=== PATIENT | female | born 1975 | race Caucasian/White ===

== ENCOUNTER 2016-09-26 09:22 | Emergency (ER) | payer BC ==
--- NOTE | 2016-09-26 10:04 | UC ---
Throat Pain/[place] HPI - HPI Summary HPI Summary: few days of left ear popping and pressure behind eye - History of Current Complaint Chief Complaint: UCEar Stated Complaint: EAR COMPLAINT Time Seen by Provider: 09/26/16 09:52 Hx Obtained From: Patient Hx Last Menstrual Period: few weeks ago ?: No Onset/Duration: Sudden Onset, Lasting Days - 3, Still Present Severity: Mild Cough: None Associated Signs & Symptoms: Positive: Sinus Discomfort, Nasal Discharge Related History: Seasonal Allergies - Allergies/Home Medications Allergies/Adverse Reactions: Allergies Allergy/AdvReac Type Severity Reaction Status Date / Time Minocycline [From Minocin] Allergy Intermediate Hives Verified 02/19/16 14:50 Home Medications: Home Medications Ibuprofen TAB* [Advil TAB*] 2 tab PO PRN 09/26/16 [History] Vitamin B 12 09/26/16 [History] Vitamin D & K 09/26/16 [History] PMH/Surg Hx/FS Hx/Imm Hx Previously Healthy: Yes Endocrine History Of: Denies: Diabetes, Thyroid Disease Cardiovascular History Of: Denies: Cardiac Disorders, Hypertension Respiratory History Of: Denies: COPD, Asthma GI/ History Of: Denies: Ulcer - Surgical History Surgical History: Yes Surgery Procedure, Year, and Place: Oral surgery - Family History Known Family History: Positive: Other - CANCER - Social History Occupation: Employed Full-time Lives: With Family Alcohol Use: Rare Substance Use Type: None Smoking Status (MU): Never Smoked Tobacco Review of Systems Constitutional: Negative Skin: Negative Eyes: Negative ENT: Ear Ache - left Respiratory: Negative Cardiovascular: Negative Gastrointestinal: Negative Genitourinary: Negative Motor: Negative Neurovascular: Negative Musculoskeletal: Negative Neurological: Negative Psychological: Negative All Other Systems Reviewed And Are Negative: Yes Physical Exam Triage Information Reviewed: Yes Appearance: Well-Appearing, No Pain Distress, Well-Nourished Vital Signs: Initial Vital Signs Temp 99.2 F 09/26/16 09:51 Pulse 65 09/26/16 09:51 Resp 18 09/26/16 09:51 BP 127/69 09/26/16 09:51 Pulse Ox 100 09/26/16 09:51 Vital Signs Reviewed: Yes Eye Exam: Normal Eyes: Positive: Conjunctiva Clear ENT Exam: Normal ENT: Positive: Normal ENT inspection, Hearing grossly normal, Nasal congestion, Nasal drainage, TMs normal - fluids noted. Negative: Tonsillar swelling, Tonsillar exudate, Trismus, Muffled/hoarse voice Dental Exam: Normal Neck exam: Normal Neck: Positive: Supple, Nontender, No Lymphadenopathy Respiratory Exam: Normal Respiratory: Positive: Chest non-tender, Lungs clear, Normal breath sounds, No respiratory distress, No accessory muscle use Cardiovascular Exam: Normal Cardiovascular: Positive: RRR, No Murmur, Pulses Normal, Brisk Capillary Refill Musculoskeletal Exam: Normal Musculoskeletal: Positive: Strength Intact, ROM Intact, No Edema Neurological Exam: Normal Neurological: Positive: Alert, Muscle Tone Normal, Fatigued Psychological Exam: Normal Skin Exam: Normal Throat Pain/Nasal Course/Dx - Course Assessment/Plan: flonase zyrtec d increase fluids, frankie pot, follow with pcp - Differential Dx/Diagnosis Differential Diagnosis/HQI/PQRI: Pharyngitis, Sinusitis, URI Provider Diagnoses: Allergic Rhinitis Discharge - Discharge Plan Condition: Stable Disposition: HOME Prescriptions: Cetirizine-Pseudoephedrine [Zyrtec-D Allergy/Congesti] 1 tab PO BID #30 tab Fluticasone NASAL SPRAY 50MCG* [Flonase NASAL SPRAY 50MCG*] 2 spray BOTH NARES DAILY #1 btl Patient Education Materials: Allergic Rhinitis (ED), How to Use Nasal [place] (ED ) Referrals: Felice Macdonald MD [Primary Care Provider] - 2 Weeks
[2016-09-26 10:12] VITALS: BP 127/69
== END 2016-09-26 10:22 | disposition home or self-care (01) ==
LOC: UCEAST 09:22
DX: J30.9 Allergic rhinitis, unspecified (principal)
CPT/HCPCS: 99212; G0463

== ENCOUNTER 2016-10-05 09:42 | Emergency (ER) | payer BC ==
[2016-10-05 10:32] VITALS: BP 110/60
--- NOTE | 2016-10-05 11:31 | UC ---
Ear Complaint HPI - HPI Summary HPI Summary: patient used a q-tip in the right ear, thought she hit something liek a bug. She also has some fullness and pressure in her ear. - History of Current Complaint Chief Complaint: UCEar Stated Complaint: EAR COMPLAINT Time Seen by Provider: 10/05/16 10:54 Hx Obtained From: Patient Hx Last Menstrual Period: 09/29/16 ?: No Onset/Duration: Sudden Onset Severity Initially: Moderate Severity Currently: Moderate - Allergies/Home Medications Allergies/Adverse Reactions: Allergies Allergy/AdvReac Type Severity Reaction Status Date / Time Minocycline [From Minocin] Allergy Intermediate Hives Verified 10/05/16 10:32 Home Medications: Home Medications Pseudoephedrine TAB* [Sudafed TAB*] 60 mg PO Q6H PRN 10/05/16 [History Confirmed 10/05/16] PMH/Surg Hx/FS Hx/Imm Hx Previously Healthy: Yes Endocrine History Of: Denies: Diabetes, Thyroid Disease Cardiovascular History Of: Denies: Cardiac Disorders, Hypertension Respiratory History Of: Denies: COPD, Asthma GI/ History Of: Denies: Ulcer - Surgical History Surgical History: None Surgery Procedure, Year, and Place: Oral surgery - Family History Known Family History: Positive: Other - CANCER - Social History Alcohol Use: Rare Substance Use Type: None Smoking Status (MU): Never Smoked Tobacco Review of Systems Constitutional: Negative Skin: Negative Eyes: Negative ENT: Ear Ache Respiratory: Negative Cardiovascular: Negative Gastrointestinal: Negative Genitourinary: Negative Motor: Negative Neurovascular: Negative Musculoskeletal: Negative Neurological: Negative Psychological: Negative All Other Systems Reviewed And Are Negative: Yes Physical Exam Triage Information Reviewed: Yes Appearance: Well-Appearing, Well-Nourished, Pain Distress Vital Signs: Initial Vital Signs Temp 97.9 F 10/05/16 10:28 Pulse 59 10/05/16 10:28 Resp 16 10/05/16 10:28 BP 110/60 10/05/16 10:28 Pulse Ox 100 10/05/16 10:28 Vital Signs Reviewed: Yes Eye Exam: Normal Eyes: Positive: Conjunctiva Clear ENT: Positive: TM bulging - right ear, clear fluid behind TM, Other: - right ear canal small area of bleeding noted from qtip trauma Dental Exam: Normal Neck exam: Normal Neck: Positive: Supple, Nontender, No Lymphadenopathy Respiratory Exam: Normal Respiratory: Positive: Chest non-tender, Lungs clear, Normal breath sounds Cardiovascular Exam: Normal Cardiovascular: Positive: RRR, No Murmur, Pulses Normal Abdominal Exam: Normal Abdomen Description: Positive: Nontender, No Organomegaly, Soft Bowel Sounds: Positive: Present Musculoskeletal Exam: Normal Musculoskeletal: Positive: Strength Intact, ROM Intact, No Edema Neurological Exam: Normal Neurological: Positive: Alert, Muscle Tone Normal Psychological Exam: Normal Skin Exam: Normal Ear Complaint Course/Dx - Course Course Of Treatment: hx obtained, exam performed, meds reviewed, educated on manual sinus drainage, how to use current medications appropriately. - Differential Dx/Diagnosis Differential Diagnosis/HQI/PQRI: Bronchitis, Cellulitis, Foreign Body, Otitis Externa, Otitis Media, Trauma, URI Provider Diagnoses: abraision to right ear canal. left serous otitis Discharge - Discharge Plan Condition: Stable Disposition: HOME Patient Education Materials: Serous Otitis Media (ED) Additional Instructions: 1. increase your fluid intake 2. continue with the sinus drainage that was demonstrated 3. Use the zrytec/flonase as prescribed as needed. 4. warm compresses to the left ear will help with cirulation and pressure relief.
== END 2016-10-05 11:41 | disposition home or self-care (01) ==
LOC: UCEAST 09:42
DX: S00.411A Abrasion of right ear, initial encounter (principal); X58.XXXA Exposure to other specified factors, initial encounter; Y93.9 Activity, unspecified; Y92.9 Unspecified place or not applicable; H65.92 Unspecified nonsuppurative otitis media, left ear; Z88.1 Allergy status to other antibiotic agents
CPT/HCPCS: 99211; G0463

== ENCOUNTER 2018-08-29 16:18 | Emergency (ER) | payer BC ==
--- NOTE | 2018-08-29 17:11 | UC ---
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 She was slicing an apple and the knife slipped. She applied pressure to the area and the bleeding significantly slowed. She is unsure the date of her last tetanus. - History Of Current Complaint Stated Complaint: FINGER LACERATION Time Seen by Provider: 08/29/18 17:10 Hx Obtained From: Patient Hx Last Menstrual Period: 09/29/16 Laceration Location: Finger Mechanism Of Injury: Sharp Trauma Onset/Duration: Sudden Onset Severity: Mild Pain Intensity: 1 Pain Scale Used: 0-10 Numeric - Allergies/Home Medications Allergies/Adverse Reactions: Allergies Allergy/AdvReac Type Severity Reaction Status Date / Time minocycline [From Minocin] Allergy Hives Verified 08/29/18 17:12 Home Medications: Home Medications Escitalopram Oxalate [Lexapro 10 mg] 1 tab PO DAILY 08/29/18 [History Confirmed 08/29/18] PMH/Surg Hx/FS Hx/Imm Hx Psychological History: Anxiety, Depression - Surgical History Surgical History: None Surgery Procedure, Year, and Place: Oral surgery - Family History Known Family History: Positive: Other - CANCER - Social History Occupation: Employed Full-time Lives: With Family Alcohol Use: Rare Substance Use Type: None Smoking Status (MU): Never Smoked Tobacco Review of Systems All Other Systems Reviewed And Are Negative: Yes Constitutional: Positive: Negative Skin: Positive: Other - Laceration left 4th finger Respiratory: Positive: Negative Cardiovascular: Positive: Negative Neurovascular: Positive: Negative Musculoskeletal: Positive: Negative Neurological: Positive: Negative Psychological: Positive: Negative Physical Exam - Summary Physical Exam Summary: GENERAL: NAD. WDWN. No pain distress. SKIN: LEFT 4th finger: Dorsal radial aspect near the nail there is a very superficial 5mm linear laceration. No active bleeding. No gaping. NECK: Supple. Nontender. No lymphadenopathy. CHEST: No accessory muscle use. Breathing comfortably and in no distress. CV: Pulses intact. Cap refill <2seconds NEURO: Alert. PSYCH: Age appropriate behavior. Triage Information Reviewed: Yes Vital Signs: Vital Signs: Temp Pulse Resp BP Pulse Ox 98.5 F 77 18 94/64 100 08/29/18 17:07 08/29/18 17:07 08/29/18 17:07 08/29/18 17:07 08/29/18 17:07 Vital Signs Reviewed: Yes Laceration Repair - Laceration Repair 1 Description: Linear Laceration Size After Repair: Length (cm) - 0.5 Modified For Repair: No Cleansing Completed Via Routine Prep: Yes Closure Material: Skin Adhesive Closure Method: Single Layer Laceration Course/Dx - Course/Dx Course Of Treatment: 0.5mm linear laceration well approximated. Clean and without active bleeding. Dermabond was applied and band-aid applied. tdap updated today. - Diagnosis Provider Diagnosis: Superficial laceration Discharge - Sign-Out/Discharge Documenting (check all that apply): Patient Departure All imaging exams completed and their final reports reviewed: No Studies - Discharge Plan Condition: Stable Disposition: HOME Patient Education Materials: Skin Adhesive Care (ED) Referrals: Felice Macdonald MD [Primary Care Provider] - Additional Instructions: If you develop a fever, shortness of breath, chest pain, new or worsening symptoms - please call your PCP or go to the ED. Keep the wound bandaged until well healed - Billing Disposition and Condition Condition: STABLE Disposition: Home
[2018-08-29 17:12] VITALS: BP 94/64
[2018-08-29] MEDS ORDERED: Tetan/Diph/Pertus SYR(Tdap)* 0.5 ML SYR(BOOSTRIX) use SYR IM ONE (17:27)
== END 2018-08-29 17:48 | disposition home or self-care (01) ==
LOC: UCEAST 16:18
DX: S61.215A Laceration without foreign body of left ring finger without damage to nail, initial encounter (principal); F41.9 Anxiety disorder, unspecified; F32.9 Major depressive disorder, single episode, unspecified; Z88.1 Allergy status to other antibiotic agents; W26.0XXA Contact with knife, initial encounter; Y92.9 Unspecified place or not applicable
CPT/HCPCS: 12001; 90471; 90715; 99211; G0463

== ENCOUNTER 2018-10-21 12:09 | Emergency (ER) | payer BC, OTHER ==
--- NOTE | 2018-10-21 12:16 | UC ---
Skin Complaint HPI - HPI Summary HPI Summary: 42 yo female presents with tick bite. She tells me that on 10/06/18 she found a tick attached to her right shoulder, which she removed. She says it was very small, but is unsure how long it was attached. About a week later she developed fatigue, intermittent headaches, and feels that she has been having night sweats. She was treated for lyme disease once in the past with doxycycline and is requesting treatment today. She has noticed no rash. Denies fever, SOB, chest pain, abdominal pain, n/v, dysuria. - History of Current Complaint Time Seen by Provider: 10/21/18 12:16 Stated Complaint: TICK BITE Hx Obtained From: Patient Hx Last Menstrual Period: 09/29/16 Onset/Duration: Gradual Onset Onset Severity: Mild Current Severity: Mild Pain Intensity: 3 Pain Scale Used: 0-10 Numeric - Allergy/Home Medications Allergies/Adverse Reactions: Allergies Allergy/AdvReac Type Severity Reaction Status Date / Time minocycline [From Minocin] Allergy Hives Verified 10/21/18 12:22 Home Medications: Home Medications Amphetamine MIXED SALTS TAB* [Adderall TAB*] 10 mg PO DAILY 10/21/18 [History Confirmed 10/21/18] PMH/Surg Hx/FS Hx/Imm Hx - Additional Past Medical History Additional PMH: ADHD Psychological History: Anxiety, Depression - Surgical History Surgical History: None Surgery Procedure, Year, and Place: Oral surgery - Family History Known Family History: Positive: Other - CANCER - Social History Occupation: Employed Full-time Lives: With Family Alcohol Use: Rare Substance Use Type: None Smoking Status (MU): Never Smoked Tobacco Review of Systems All Other Systems Reviewed And Are Negative: Yes Constitutional: Positive: Fatigue Skin: Positive: Other - Tick bite Respiratory: Positive: Negative Cardiovascular: Positive: Negative Gastrointestinal: Positive: Negative Neurovascular: Positive: Negative Neurological: Positive: Negative Psychological: Positive: Negative Physical Exam - Summary Physical Exam Summary: GENERAL: NAD. WDWN. No pain distress. SKIN: RIGHT SHULDER: Healed 1mm superficial scab at site of previous tick bite. No streaking, bleeding, or drainage. HEENT: Head: AT/NC Eyes: EOM intact. Conjunctiva clear without inflammation or discharge. Ears: Hearing grossly normal. TMs intact, no bulging, erythema, or edema. Nose: Nasal mucosa pink and moist. NTTP maxillary and frontal sinus. Throat: Posterior oropharynx without exudates, erythema, or tonsillar enlargement. Uvula midline. NECK: Supple. Nontender. No lymphadenopathy. CHEST: CTAB. No r/r/w. No accessory muscle use. Breathing comfortably and in no distress. CV: RRR. Without m/r/g. Pulses intact. Cap refill <2seconds NEURO: Alert. PSYCH: Age appropriate behavior. Triage Information Reviewed: Yes Vital Signs: Vital Signs: Temp Pulse Resp BP Pulse Ox 99.2 F 75 14 116/69 100 10/21/18 12:13 10/21/18 12:13 10/21/18 12:13 10/21/18 12:13 10/21/18 12:13 Vital Signs Reviewed: Yes Course/Dx - Course Course Of Treatment: Discussed with pt that her symptoms could be related to lyme disease, but I have a low suspicion for this at this time as she tells me the tick was not engorged, she has had no EM rash, and her symptoms appear quite vague in nature. I recommended testing for lyme disease and drawing a CBC/CMP today, but pt refused and is requesting treatment for lyme disease with doxycycline at this time. Will rx for doxy at this time and have her f/u with her PCP if symptoms worsen or do not improve. - Diagnoses Provider Diagnosis: Tick bite, Fatigue Discharge - Sign-Out/Discharge Documenting (check all that apply): Patient Departure All imaging exams completed and their final reports reviewed: No Studies - Discharge Plan Condition: Stable Disposition: HOME Prescriptions: DOXYcycline CAP(*) [DOXYcycline 100MG CAP(*)] 100 mg PO BID #42 cap Patient Education Materials: Lyme Disease (ED), Tick Bite (ED) Referrals: Felice Macdonald MD [Primary Care Provider] - Additional Instructions: If you develop a fever, shortness of breath, chest pain, new or worsening symptoms - please call your PCP or go to the ED immediately. You have decided to be treated for lyme disease today with Doxycycline. If your symptoms do not improve - please be rechecked by your primary doctor - Billing Disposition and Condition Condition: STABLE Disposition: Home
[2018-10-21 12:29] VITALS: BP 116/69
== END 2018-10-21 12:37 | disposition home or self-care (01) ==
LOC: UCEAST 12:09
DX: S40.261A Insect bite (nonvenomous) of right shoulder, initial encounter (principal); W57.XXXA Bitten or stung by nonvenomous insect and other nonvenomous arthropods, initial encounter; Y92.9 Unspecified place or not applicable; R53.83 Other fatigue; F90.9 Attention-deficit hyperactivity disorder, unspecified type; F41.9 Anxiety disorder, unspecified; Z88.1 Allergy status to other antibiotic agents
CPT/HCPCS: 99212; G0463